=== PATIENT | female | born 1975 | race Asian ===

== ENCOUNTER 2016-12-26 11:23 | Emergency (ER) | payer SELFPAY ==
[~2016-12-26] VITALS: Ht 154.9 cm; Wt 47.5 kg
[2016-12-26] MEDS ORDERED: SODIUM CHLORIDE FLUSH 10ML SYR IVF ONE (12:30)
[2016-12-26] MEDS ORDERED: SODIUM CHLORIDE 0.9% 1,000ML IVBOLUS ONE (12:30)
[2016-12-26] MEDS ORDERED: ONDANSETRON ODT 4 MG ONE (13:03)
[2016-12-26 13:04] LABS: ASPARTATE AMINO TRANSFERASE 22 U/L (15-37); BLOOD UREA NITROGEN 9 mg/dL (7-18)
[2016-12-26] MEDS ORDERED: ONDANSETRON ODT 4 MG PO ONE (13:30)
[2016-12-26 14:22] VITALS: BP 118/72
== END 2016-12-26 15:29 | disposition home or self-care (01) ==
LOC: ED 13:22
DX: R19.7 Diarrhea, unspecified (principal)
CPT/HCPCS: 36415; 80053; 83690; 84703; 85025; 87046; 87324; 87328; 87329; 87899; 89055; 93005; 96360; 96361; 99285; J7030; Q0162